=== PATIENT | female | born 1970 | race Caucasian/White ===

== ENCOUNTER 2017-12-12 14:33 | Emergency (ER) | payer OTHER ==
[~2017-12-12] VITALS: Ht 162.6 cm; Wt 90.0 kg
[~2017-12-12 14:33] MED LIST: AMLO10 PO; ASPI81 PO; ATOR40TA49 PO; COZA100T PO; CYCL-36 PO; GABA300C3 PO; HYDR-3129 PO; HYDR200T42 PO; ISOS30 PO; METO50CR PO; PRAS10TA OR; PROT40TA PO
[2017-12-12 14:34] VITALS: BP 123/75; PULSE 73; RESP 14; TEMP 98.1; O2SAT 99
[2017-12-12 15:40] LABS: AUTOMATED NEUTROPHIL # 7.1 TH/MM3 (1.8-7.7); BASOPHIL # 0.1 TH/MM3 (0-0.2); BASOPHIL % 1.3 % (0.0-2.0); EOSINOPHIL # 0.3 TH/MM3 (0-0.4); EOSINOPHIL % 2.8 % (0.0-4.0); HEMATOCRIT 41.1 % (35.0-46.0); HEMOGLOBIN 14.2 GM/DL (11.6-15.3); LYMPH % 20.3 % (9.0-44.0); LYMPHOCYTE # 2.1 TH/MM3 (1.0-4.8); MEAN CELL VOLUME 85.8 FL (80.0-100.0); MEAN CORPUSCULAR HEMOGLOBIN 29.7 PG (27.0-34.0); MEAN CORPUSCULAR HGB CONC 34.6 % (32.0-36.0); MEAN PLATELET VOLUME 8.7 FL (7.0-11.0); MONO % 6.3 % (0.0-8.0); MONOCYTE # 0.6 TH/MM3 (0-0.9); NEUT % 69.3 % (16.0-70.0); PLATELET COUNT 290 TH/MM3 (150-450); RED BLOOD COUNT 4.79 MIL/MM3 (4.00-5.30); RED CELL DISTRIBUTION WIDTH 14.5 % (11.6-17.2); WHITE BLOOD COUNT 10.3 TH/MM3 (4.0-11.0)
--- NOTE | 2017-12-12 15:46 | RADRPT ---
EXAM DATE/TIME: 12/12/2017 15:21 [facility] COMPARISON: No previous studies available for comparison. INDICATIONS : Short of breath. MEDICAL HISTORY : None. SURGICAL HISTORY : None. ENCOUNTER: Initial ACUITY: 1 day PAIN SCORE: 0/10 LOCATION: Bilateral chest FINDINGS: A single view of the chest demonstrates the lungs to be symmetrically aerated without evidence of mas s, infiltrate or effusion. The cardiomediastinal contours are unremarkable. Osseous structures are intact. CONCLUSION: No acute disease. Arcenio Peterson MD on December 12, 2017 at 15:43 Board Certified Radiologist. This report was verified electronically.
[2017-12-12 15:55] LABS: MAGNESIUM 2.1 MG/DL (1.5-2.5)
--- NOTE | 2017-12-12 16:04 | PD ---
HPI Chief Complaint: Injury Time Seen by Provider: 15:00 Travel History International Travel<30 days: No Contact w/Intl Traveler<30days: No Traveled to known affect area: No History of Present Illness HPI 47-year-old female that presents to the ED for evaluation of pain and swelling to the left leg. Per patient she's had this for about a week. Per patient on Wednesday she had a syncopal fall. Per patient she doesn't remember what happened bile she remembers is that she was trying to get into her pickup truck that she was helping move some furniture and all she remembers that she was on the floor next. Apparently the daughter witnessed the fall and she apparently landed on her right side. She did not hit her left leg but she does have bruising and swelling on the left leg which is the only area that she has pain. She has concerns about this. She denies any other symptoms since the injury. She does have a history of heart disease and takes blood thinner. No history of chest pain or shortness of breath. No palpitations recently. Denies any weakness. Per family she's been acting normal. Per patient pain is 8 out of 10 with movement and able to ambulate but with a limp. Denies any numbness, tilling, weakness. Significant bruising to the left leg as well as the right leg. More noticeable on the left. Denies hitting her head but again she doesn't remember what happened. She does take blood thinners. No blurry vision or double vision. PFSH Past Medical History Hx Anticoagulant Therapy: Yes Arthritis: Yes Autoimmune Disease: Yes (lupus ) Anxiety: Yes Depression: Yes Cancer: No Cardiovascular Problems: Yes High Cholesterol: Yes Chest Pain: Yes Congestive Heart Failure: No COPD: No Cerebrovascular Accident: No Diminished Hearing: No Deep Vein Thrombosis: Yes Endocrine: No Fibromyalgia: Yes GERD: Yes Genitourinary: No Hypertension: Yes Musculoskeletal: Yes Neurologic: No Psychiatric: No Reproductive: Yes Respiratory: Yes Immunizations Current: Yes Migraines: Yes Myocardial Infarction: Yes Seizures: Yes Tetanus Vaccination: < 5 Years Influenza Vaccination: No ?: Not Past Surgical History Arteriovenous Shunt: No Coronary Stent: Yes Genitourinary Surgery: Yes (ureteral stent) Gynecologic Surgery: Yes (uterine suspension, hysterectomy ) Hysterectomy: Yes Insulin Pump: No Joint Replacement: No Social History Alcohol Use: No Tobacco Use: Yes (3/ ppd) Substance Use: No Allergies-Medications (Allergen,Severity, Reaction): Coded Allergies: amoxicillin (Unverified Allergy, Severe, HIVES, 06/15/17) penicillin G (Unverified Allergy, Unknown, Rash, 06/15/17) Reported Meds & Prescriptions Reported Meds & Active Scripts Active Reported Effient (Prasugrel) 10 Mg Tab 10 Mg OR DAILY Imdur 30 Mg (Isosorbide Mononitrate) 30 Mg Tabcr 30 Mg PO DAILY@0700 Lipitor 40 Mg Tab (Atorvastatin Calcium) 40 Mg Tab 40 Mg PO DAILY [place] 10/325 (Hydrocodone-Acetaminophen) 10 Mg/325 Mg Tab 1 Tab PO TIDPRN Flexeril (Cyclobenzaprine HCl) 10 Mg Tab 10 Mg PO TID Gabapentin 300 Mg Cap 300 Mg PO HS Protonix (Pantoprazole Sodium) 40 Mg Tab 40 Mg PO DAILY Aspirin 81 Mg Tab 81 Mg PO DAILY Cozaar (Losartan Potassium) 100 Mg Tab 100 Mg PO DAILY Metoprolol Succinate Er (Metoprolol Succinate) 50 Mg Tab 50 Mg PO BID Norvasc (Amlodipine Besylate) 10 Mg Tab 10 Mg PO DAILY Plaquenil (Hydroxychloroquine Sulfate) 200 Mg Tab 200 Mg PO TID Review of Systems Except as stated in HPI: all other systems reviewed are Neg Physical Exam Narrative GENERAL: SKIN: Warm and dry. HEAD: Atraumatic. Normocephalic. EYES: Pupils equal and round. No scleral icterus. No injection or drainage. ENT: No nasal bleeding or discharge. Mucous membranes pink and moist. Tongue is midline. No uvula deviation. NECK: Trachea midline. No JVD. CARDIOVASCULAR: Regular rate and rhythm. No murmurs, S3, S4. RESPIRATORY: No accessory muscle use. Clear to auscultation. Breath sounds equal bilaterally. GASTROINTESTINAL: Abdomen soft, non-tender, nondistended. Hepatic and splenic margins not palpable. MUSCULOSKELETAL: Extremities without clubbing, cyanosis, or edema. No obvious deformities. Motion of the upper extremities. Patient has full range of motion lower extremities. She does have bruising and swelling noted on the left and right leg. More noticeable on the left leg. Tender to touch in the left leg. Good capillary refill. Sensation intact bilaterally. No obvious bony deformity noted. No lumbar, thoracic, cervical spine tenderness to palpation. NEUROLOGICAL: Awake and alert. No obvious cranial nerve deficits. Motor grossly within normal limits. Five out of 5 muscle strength in the arms and legs. Normal speech. PSYCHIATRIC: Appropriate mood and affect; insight and judgment normal. Data Data Last Documented VS Vital Signs Date Time Temp Pulse Resp B/P (MAP) Pulse Ox O2 Delivery O2 Flow Rate FiO2 12/12/17 16:37 70 24 123/71 (88) 98 Room Air 12/12/17 14:34 98.1 Orders Orders Electrocardiogram (12/12/17 15:06) Complete Blood Count With Diff (12/12/17 15:06) Ckmb (Isoenzyme) Profile (12/12/17 15:06) Troponin I (12/12/17 15:06) Prothrombin Time / Inr (Pt) (12/12/17 15:06) Act Partial Throm Time (Ptt) (12/12/17 15:06) Magnesium (Mg) (12/12/17 15:06) Thyroid Stimulating Hormone (12/12/17 15:06) Chest, Single Ap (12/12/17 15:06) Ct Brain W/O Iv Contrast(Rout) (12/12/17 15:06) Iv Access Insert/Monitor (12/12/17 15:06) Ecg Monitoring (12/12/17 15:06) Oximetry (12/12/17 15:06) Us Leg Venous Doppler (12/12/17 15:06) Femur (Ap & Lat/2vws) (12/12/17 15:06) Tibia/Fibula (Ap/Lat) (12/12/17 15:06) Basic Metabolic Panel (Bmp) (12/12/17 15:15) Ed Discharge Order (12/12/17 17:46) Labs Laboratory Tests Test 12/12/17 15:16 White Blood Count 10.3 TH/MM3 Red Blood Count 4.79 MIL/MM3 Hemoglobin 14.2 GM/DL Hematocrit 41.1 % Mean Corpuscular Volume 85.8 FL Mean Corpuscular Hemoglobin 29.7 PG Mean Corpuscular Hemoglobin Concent 34.6 % Red Cell Distribution Width 14.5 % Platelet Count 290 TH/MM3 Mean Platelet Volume 8.7 FL Neutrophils (%) (Auto) 69.3 % Lymphocytes (%) (Auto) 20.3 % Monocytes (%) (Auto) 6.3 % Eosinophils (%) (Auto) 2.8 % Basophils (%) (Auto) 1.3 % Neutrophils # (Auto) 7.1 TH/MM3 Lymphocytes # (Auto) 2.1 TH/MM3 Monocytes # (Auto) 0.6 TH/MM3 Eosinophils # (Auto) 0.3 TH/MM3 Basophils # (Auto) 0.1 TH/MM3 CBC Comment DIFF FINAL Differential Comment Prothrombin Time 10.0 SEC Prothromb Time International Ratio 1.0 RATIO Activated Partial Thromboplast Time 26.1 SEC Blood Urea Nitrogen 13 MG/DL Creatinine 0.83 MG/DL Random Glucose 114 MG/DL Calcium Level 8.9 MG/DL Sodium Level 141 MEQ/L Potassium Level 3.9 MEQ/L Chloride Level 107 MEQ/L Carbon Dioxide Level 28.3 MEQ/L Anion Gap 6 MEQ/L Estimat Glomerular Filtration Rate 74 ML/MIN Magnesium Level 2.1 MG/DL Total Creatine Kinase 68 U/L Troponin I LESS THAN 0.02 NG/ML Thyroid Stimulating Hormone 3rd Gen 0.499 uIU/ML MDM Medical Decision Making Medical Screen Exam Complete: Yes Emergency Medical Condition: Yes Medical Record Reviewed: Yes Interpretation(s) CBC & BMP Diagram 12/12/17 15:16 Calcium Level 8.9 troponin and CKMB negative Last Impressions Tibia/Fibula X-Ray 12/12/17 1506 Signed Impressions: Service Date/Time: Tuesday, December 12, 2017 15:26 - CONCLUSION: No evidence of recent bony injury. Gordo Murphy MD Lower Extremity Ultrasound 12/12/17 1506 Signed Impressions: Service Date/Time: Tuesday, December 12, 2017 15:43 - CONCLUSION: Normal examination. No evidence DVT Arcenio Peterson MD Head CT 12/12/17 1506 Signed Impressions: Service Date/Time: Tuesday, December 12, 2017 17:11 - CONCLUSION: Intracranially negative. Flecks of calcification in the internal carotid arteries in the siphon consistent with premature atherosclerotic vascular disease Arcenio Peterson MD Femur X-Ray 12/12/17 1506 Signed Impressions: Service Date/Time: Tuesday, December 12, 2017 15:24 - CONCLUSION: No evidence of recent bony injury.. Gordo Murphy MD Chest X-Ray 12/12/17 1506 Signed Impressions: Service Date/Time: Tuesday, December 12, 2017 15:21 - CONCLUSION: No acute disease. Arcenio Peterson MD Differential Diagnosis Fracture versus sprain versus strain versus DVT versus syncope versus syncopal episode versus normal exam versus bruising versus contusion Narrative Course 47-year-old female that presents to the ED for evaluation of fall. Patient was properly examined and was found to have signs and symptoms consistent appears to be syncopal fall. Unclear etiology but does appear to have significant bruising likely secondary from blood thinner. We'll do ultrasound and imaging. Labs were ordered. Labs and imaging showed no sign of acute bony injury or deformity. Likely bruising contusions. Patient was reassured. Case was discussed in my attending Dr. Sheppard who was made aware of findings and agrees the patient can be discharged. Patient will be sent home with prescription for diclofenac sodium. Told to apply ice or warm compresses. Close follow with PCP. See ED worsening symptoms. Diagnosis Primary Impression: Contusion of leg, left Qualified Codes: S80.12XA - Contusion of left lower leg, initial encounter Additional Impression: Syncope Qualified Codes: R55 - Syncope and collapse Patient Instructions: General Instructions Additional Instructions: Take medications as prescribed. Follow-up with PCP. See ED for any worsening symptoms. Apply ice or heat as needed for pain Med/Other Pt SpecificInfo: Prescription(s) given Disposition: 01 DISCHARGE HOME Condition: Stable Gigi Medellin Dec 12, 2017 16:04
[2017-12-12 16:05] LABS: TROPONIN I LESS THAN 0.02 NG/ML (0.02-0.05)
--- NOTE | 2017-12-12 16:08 | RADRPT ---
EXAM DATE/TIME: 12/12/2017 15:26 [facility] COMPARISON: No previous studies available for comparison. INDICATIONS : Pain in left lower leg, fall. MEDICAL HISTORY : None. SURGICAL HISTORY : None. ENCOUNTER: Initial ACUITY: 1 day PAIN SCORE: 7/10 LOCATION: Left lower leg FINDINGS: Two view examination of the left tibia demonstrates no evidence of fracture or dislocation. Bony min eralization is normal. The soft tissue structures are intact. CONCLUSION: No evidence of recent bony injury. Gordo Murphy MD on December 12, 2017 at 16:06 Board Certified Radiologist. This report was verified electronically.
--- NOTE | 2017-12-12 16:08 | RADRPT ---
EXAM DATE/TIME: 12/12/2017 15:24 [facility] COMPARISON: No previous studies available for comparison. INDICATIONS : Fall, pain in left leg swelling. MEDICAL HISTORY : None. SURGICAL HISTORY : None. ENCOUNTER: Initial ACUITY: 1 day PAIN SCORE: 7/10 LOCATION: Left femur FINDINGS: Two view examination of the left femur demonstrates no evidence of fracture or dislocation. Bony min eralization is normal. The soft tissue structures are intact. CONCLUSION: No evidence of recent bony injury.. Gordo Murphy MD on December 12, 2017 at 16:05 Board Certified Radiologist. This report was verified electronically.
--- NOTE | 2017-12-12 16:08 | RADRPT ---
EXAM DATE/TIME: 12/12/2017 15:43 [facility] COMPARISON: No previous studies available for comparison. INDICATIONS : Left leg swelling. MEDICAL HISTORY : Myocardial infarction. Hypercholesterolemia. Hypertension. Glasses. Seizures. Anticoagulant therap y. Deep vein thrombosis. Dyspnea. Gastroesophageal reflux disease. Arthritis. Fibromyalgia. Anxiety. Depression. SURGICAL HISTORY : Hysterectomy. Coronary artery stent. Ureteral stent. ENCOUNTER: Initial ACUITY: 1 week PAIN SCORE: 3/10 LOCATION: Left leg. TECHNIQUE: Venous ultrasound of the leg was performed from the inguinal ligament to the proximal calf. Real-liz e, color Doppler and spectral tracing, compression and augmentation techniques were used. FINDINGS: There is normal compressibility of the deep venous system from the inguinal region to the proximal ca lf. No echogenic clot is seen in the lumen of the common femoral, femoral, popliteal, and posterior tibial veins. There is a normal response of the venous system to proximal and distal augmentation an d respiration. CONCLUSION: Normal examination. No evidence DVT Arcenio Peterson MD on December 12, 2017 at 16:05 Board Certified Radiologist. This report was verified electronically.
[2017-12-12 16:37] VITALS: BP 123/71; PULSE 67; PULSE 70; RESP 18; RESP 24; O2SAT 98
[2017-12-12 16:46] LABS: BICARBONATE 28.3 MEQ/L (21.0-32.0); CALCIUM 8.9 MG/DL (8.5-10.1); CREATININE 0.83 MG/DL (0.50-1.00)
--- NOTE | 2017-12-12 17:25 | RADRPT ---
EXAM DATE/TIME: 12/12/2017 17:11 [facility] COMPARISON: No previous studies available for comparison. INDICATIONS : Syncopal episode last night. RADIATION DOSE: 37.80 CTDIvol (mGy) MEDICAL HISTORY : Lupus. Seizures. SURGICAL HISTORY : Hysterectomy. ENCOUNTER: Initial ACUITY: 1 day PAIN SCALE: 0/10 LOCATION: Bilateral head TECHNIQUE: Multiple contiguous axial images were obtained of the head. Using automated exposure control and adj ustment of the mA and/or kV according to patient size, radiation dose was kept as low as reasonably a chievable to obtain optimal diagnostic quality images. DICOM format image data is available electro nically for review and comparison. FINDINGS: CEREBRUM: The ventricles are normal for age. No evidence of midline shift, mass lesion, hemorrhage or acute in farction. No extra-axial fluid collections are seen. POSTERIOR FOSSA: The cerebellum and brainstem are intact. The 4th ventricle is midline. The cerebellopontine angle i s unremarkable. EXTRACRANIAL: The visualized portion of the orbits is intact. There are vascular calcifications of the internal car otids and the siphon consistent with premature atherosclerotic disease SKULL: The calvaria is intact. No evidence of skull fracture. CONCLUSION: Intracranially negative. Flecks of calcification in the internal carotid patrick jose in the siphon consistent with premature atherosclerotic vascular disease Arcenio Peterson MD on December 12, 2017 at 17:21 Board Certified Radiologist. This report was verified electronically.
[2017-12-12 17:51] VITALS: BP 117/73
[2017-12-12] MEDS ORDERED: DICL75TA PO (17:53)
--- NOTE | 2017-12-12 17:54 | PD ---
Data Data Last Documented VS Vital Signs Date Time Temp Pulse Resp B/P (MAP) Pulse Ox O2 Delivery O2 Flow Rate FiO2 12/12/17 16:37 70 24 123/71 (88) 98 Room Air 12/12/17 14:34 98.1 Orders Orders Electrocardiogram (12/12/17 15:06) Complete Blood Count With Diff (12/12/17 15:06) Ckmb (Isoenzyme) Profile (12/12/17 15:06) Troponin I (12/12/17 15:06) Prothrombin Time / Inr (Pt) (12/12/17 15:06) Act Partial Throm Time (Ptt) (12/12/17 15:06) Magnesium (Mg) (12/12/17 15:06) Thyroid Stimulating Hormone (12/12/17 15:06) Chest, Single Ap (12/12/17 15:06) Ct Brain W/O Iv Contrast(Rout) (12/12/17 15:06) Iv Access Insert/Monitor (12/12/17 15:06) Ecg Monitoring (12/12/17 15:06) Oximetry (12/12/17 15:06) Us Leg Venous Doppler (12/12/17 15:06) Femur (Ap & Lat/2vws) (12/12/17 15:06) Tibia/Fibula (Ap/Lat) (12/12/17 15:06) Basic Metabolic Panel (Bmp) (12/12/17 15:15) Ed Discharge Order (12/12/17 17:46) Labs Laboratory Tests Test 12/12/17 15:16 White Blood Count 10.3 TH/MM3 Red Blood Count 4.79 MIL/MM3 Hemoglobin 14.2 GM/DL Hematocrit 41.1 % Mean Corpuscular Volume 85.8 FL Mean Corpuscular Hemoglobin 29.7 PG Mean Corpuscular Hemoglobin Concent 34.6 % Red Cell Distribution Width 14.5 % Platelet Count 290 TH/MM3 Mean Platelet Volume 8.7 FL Neutrophils (%) (Auto) 69.3 % Lymphocytes (%) (Auto) 20.3 % Monocytes (%) (Auto) 6.3 % Eosinophils (%) (Auto) 2.8 % Basophils (%) (Auto) 1.3 % Neutrophils # (Auto) 7.1 TH/MM3 Lymphocytes # (Auto) 2.1 TH/MM3 Monocytes # (Auto) 0.6 TH/MM3 Eosinophils # (Auto) 0.3 TH/MM3 Basophils # (Auto) 0.1 TH/MM3 CBC Comment DIFF FINAL Differential Comment Prothrombin Time 10.0 SEC Prothromb Time International Ratio 1.0 RATIO Activated Partial Thromboplast Time 26.1 SEC Blood Urea Nitrogen 13 MG/DL Creatinine 0.83 MG/DL Random Glucose 114 MG/DL Calcium Level 8.9 MG/DL Sodium Level 141 MEQ/L Potassium Level 3.9 MEQ/L Chloride Level 107 MEQ/L Carbon Dioxide Level 28.3 MEQ/L Anion Gap 6 MEQ/L Estimat Glomerular Filtration Rate 74 ML/MIN Magnesium Level 2.1 MG/DL Total Creatine Kinase 68 U/L Troponin I LESS THAN 0.02 NG/ML Thyroid Stimulating Hormone 3rd Gen 0.499 uIU/ML MDM Supervised Visit with [facility]: Yes Narrative Course The history, exam, and medical decision-making in the associated mid-level provider note were completed with my assistance. I reviewed and agree with the findings presented. I attest that I had a [id number] encounter with the patient on the same day, and personally performed and documented my assessment and findings in the medical record. *My assessment and Findings: 47-year-old woman, syncope and collapse about a week ago, left leg pain with extensive bruising, greater than expected. History of DVT and lupus. DVT was in the setting of post hysterectomy. She looks well. Imaging for the legs negative. Labs look for platelets and coags are normal. EKG x-ray and troponin are all negative. Recommend supportive treatment, keep walking, follow -up with her primary doctor. Return for any worsening pain or swelling. Recommended repeat ultrasound in 1-2 weeks if swelling persists. Diagnosis Primary Impression: Contusion of leg, left Qualified Codes: S80.12XA - Contusion of left lower leg, initial encounter Additional Impression: Syncope Qualified Codes: R55 - Syncope and collapse Patient Instructions: General Instructions Departure Forms: Tests/Procedures Additional Instruction: Take medications as prescribed. Follow-up with PCP. See ED for any worsening symptoms. Apply ice or heat as needed for pain Disposition: 01 DISCHARGE HOME Condition: Stable Anthony Sheppard MD Dec 12, 2017 17:54
--- NOTE | 2017-12-13 11:50 | EKG ---
Date Performed: 12/12/2017 Time Performed: 15:15:19 PTAGE: 47 years EKG: Sinus rhythm NORMAL ECG Compared to PREVIOUS TRACING nonspecific ST-T wave changes anteriorly have resolved PREVIOUS TRACING : 05/10/13 DOCTOR: Darryn Van Interpretating Date/Time 12/13/2017 11:48:06
== END 2017-12-12 18:41 | disposition home or self-care (01) ==
LOC: NEPE 14:33
DX: S80.12XA Contusion of left lower leg, initial encounter (principal); W19.XXXA Unspecified fall, initial encounter; R55 Syncope and collapse; E78.00 Pure hypercholesterolemia, unspecified; F32.9 Major depressive disorder, single episode, unspecified; F41.9 Anxiety disorder, unspecified; I10 Essential (primary) hypertension; M32.9 Systemic lupus erythematosus, unspecified; F17.200 Nicotine dependence, unspecified, uncomplicated
CPT/HCPCS: 70450; 71045; 73552; 73590; 80048; 82550; 83735; 84443; 84484; 85025; 85610; 85730; 93005; 93971; 99285